=== PATIENT | female | born 1955 | race Caucasian/White ===

== ENCOUNTER → 2021-05-15 | Outpatient (CLI) | payer OTHER ==
--- NOTE | 2021-05-15 15:54 | RAD ---
EXAM: PA, oblique and lateral views of the left hand DATE: 05/15/2021 11:02 AM INDICATION: Reason: PAIN LEFT HAND / Spl. Instructions: / History: . COMPARISON: No Prior FINDINGS: Marked osteopenia. Multifocal degenerative changes are seen. No acute fracture or dislocation. IMPRESSION: 1. Within the constraints of osteopenia, no evidence for acute fracture or dislocation. Electronically signed by: Connor Barton MD (05/15/2021 3:52 PM) DENI
--- NOTE | 2021-05-15 16:00 | RAD ---
EXAM: AP pelvis, lateral view right hip DATE: 05/15/2021 11:02 AM INDICATION: Reason: PAIN RIGHT HIP / Spl. Instructions: / History: . COMPARISON: No Prior FINDINGS: No pubic symphysis or SI joint diastases. No acute fracture or dislocation. Bilateral hip joint osteo arthritis. Deformity and flattening of the right femoral head, may be seen with osteonecrosis. IMPRESSION: 1. No evidence of acute fracture or dislocation. 2. Deformity and flattening of the right femoral head may be seen with osteonecrosis Electronically signed by: Connor Barton MD (05/15/2021 3:58 PM) DENI
== END ==
LOC: RAD 10:25
PROVIDERS: ATTEND Nurse Practitioner Family
DX: M16.0 Bilateral primary osteoarthritis of hip (principal); M85.842 Other specified disorders of bone density and structure, left hand
CPT/HCPCS: 73130; 73501